=== PATIENT | female | born 1935 | race Caucasian/White ===

== ENCOUNTER 2017-02-07 12:53 | Inpatient (IN) | payer OTHER ==
[~2017-02-07] VITALS: Ht 154.9 cm; Wt 57.7 kg
[2017-02-07 12:54] VITALS: Ht 154.9 cm; Wt 57.7 kg
[2017-02-07 13:41] LABS: BASOPHIL % 0.1 % (0-2); PLATELET COUNT 282 x10^3mcL (130-400); RED CELL DISTRIBUTION WIDTH 13.5 % (11.5-14.5)
[2017-02-07 14:06] LABS: ALBUMIN 3.6 g/dL (3.4-5.0); ALKALINE PHOSPHATASE 86 U/L (46-116); ALT/SGPT 49 U/L (14-59); AST/SGOT 43 U/L (15-37); CALCIUM 8.4 mg/dL (8.5-10.1); CARBON DIOXIDE 24.9 mmol/L (21-32); CHLORIDE SERUM 80 mmol/L (98-107); CHOLESTEROL 157 mg/dL (<200); CREATININE SERUM 0.5 mg/dL (0.6-1.0); GLUCOSE SERUM 107 mg/dL (74-106); POTASSIUM SERUM 3.4 mmol/L (3.5-5.1); TOTAL PROTEIN, SERUM 7.1 g/dL (6.4-8.2)
[2017-02-07 14:12] LABS: SODIUM SERUM 116 mmol/L (136-145)
[2017-02-07] MEDS ORDERED: ASPIR 8181 MG PO (15:22)
[2017-02-07] MEDS ORDERED: METOPROLOL SUCC50 M2 PO (15:22)
[2017-02-07 15:40] LABS: MAGNESIUM 1.7 mg/dL (1.8-2.4); PHOSPHOROUS 2.5 mg/dL (2.5-4.9)
[2017-02-07 15:42] LABS: CHOLESTEROL/HDL RATIO 1.5
[2017-02-07 15:49] LABS: FREE T4 1.47 ng/dL (0.76-1.46); FREE THYROXINE INDEX 3.9 ug/dL (1.4-4.5); T4(THYROXINE) 10.6 ug/dL (4.7-13.3)
[2017-02-07 15:58] LABS: T3 TOTAL 0.63 ng/mL
[2017-02-07 16:05] VITALS: BP 160/56
[2017-02-07 17:16] VITALS: BP 150/71
[2017-02-07 17:26] LABS: CALCIUM 8.4 mg/dL (8.5-10.1); CHLORIDE SERUM 81 mmol/L (98-107); CREATININE SERUM 0.5 mg/dL (0.6-1.0); GLUCOSE SERUM 99 mg/dL (74-106); POTASSIUM SERUM 3.4 mmol/L (3.5-5.1)
[2017-02-07 17:29] LABS: SODIUM SERUM 115 mmol/L (136-145)
[2017-02-07 19:59] VITALS: BP 192/80
[2017-02-07] MEDS ORDERED: CLONIDINE HCL0.1 MG PO (20:25)
[2017-02-07 21:25] VITALS: BP 161/71
[2017-02-07 23:29] LABS: CALCIUM 7.9 mg/dL (8.5-10.1); CARBON DIOXIDE 25.8 mmol/L (21-32); CREATININE SERUM 0.6 mg/dL (0.6-1.0); GLUCOSE SERUM 98 mg/dL (74-106); POTASSIUM SERUM 3.5 mmol/L (3.5-5.1)
[2017-02-07 23:36] LABS: CHLORIDE SERUM 83 mmol/L (98-107)
[2017-02-07 23:37] LABS: SODIUM SERUM 116 mmol/L (136-145)
[2017-02-08] VITALS (7 sets, daily range): BP systolic 139–182; BP diastolic 65–74
[2017-02-08 06:07] LABS: UA SPECIFIC GRAVITY 1.015 (1.005-1.035); microscopic required? YES; urine erythrocyte NEGATIVE (NEGATIVE)
[2017-02-08 06:16] LABS: AMPHETAMINE QUAL UR NONE DETECTED (NEG <=1000)
[2017-02-08 06:52] LABS: BASOPHIL % 0.2 % (0-2); PLATELET COUNT 264 x10^3mcL (130-400); RED CELL DISTRIBUTION WIDTH 13.8 % (11.5-14.5)
[2017-02-08 07:14] LABS: CALCIUM 8.5 mg/dL (8.5-10.1); CARBON DIOXIDE 26.8 mmol/L (21-32); CHLORIDE SERUM 85 mmol/L (98-107); CREATININE SERUM 0.6 mg/dL (0.6-1.0); GLUCOSE SERUM 95 mg/dL (74-106)
[2017-02-08 07:38] LABS: SODIUM SERUM 121 mmol/L (136-145)
[2017-02-08 13:29] LABS: CALCIUM 8.5 mg/dL (8.5-10.1); CARBON DIOXIDE 27.5 mmol/L (21-32); CHLORIDE SERUM 90 mmol/L (98-107); CREATININE SERUM 0.6 mg/dL (0.6-1.0); GLUCOSE SERUM 91 mg/dL (74-106); SODIUM SERUM 128 mmol/L (136-145)
[2017-02-08 16:57] LABS: CALCIUM 8.3 mg/dL (8.5-10.1); CARBON DIOXIDE 28.1 mmol/L (21-32); CHLORIDE SERUM 87 mmol/L (98-107); CREATININE SERUM 0.8 mg/dL (0.6-1.0); GLUCOSE SERUM 96 mg/dL (74-106); POTASSIUM SERUM 3.6 mmol/L (3.5-5.1)
[2017-02-08 16:59] LABS: SODIUM SERUM 123 mmol/L (136-145)
[2017-02-08 20:37] LABS: CALCIUM 8.1 mg/dL (8.5-10.1); CARBON DIOXIDE 29.6 mmol/L (21-32); CHLORIDE SERUM 90 mmol/L (98-107); CREATININE SERUM 0.7 mg/dL (0.6-1.0); GLUCOSE SERUM 107 mg/dL (74-106); POTASSIUM SERUM 3.4 mmol/L (3.5-5.1); SODIUM SERUM 126 mmol/L (136-145)
[2017-02-09 00:39] LABS: CALCIUM 7.9 mg/dL (8.5-10.1); CARBON DIOXIDE 28.9 mmol/L (21-32); CHLORIDE SERUM 92 mmol/L (98-107); CREATININE SERUM 0.7 mg/dL (0.6-1.0); GLUCOSE SERUM 94 mg/dL (74-106); POTASSIUM SERUM 3.5 mmol/L (3.5-5.1); SODIUM SERUM 127 mmol/L (136-145)
[2017-02-09 05:07] VITALS: BP 143/59
[2017-02-09 06:46] LABS: BASOPHIL % 0.3 % (0-2); PLATELET COUNT 252 x10^3mcL (130-400); RED CELL DISTRIBUTION WIDTH 14.2 % (11.5-14.5)
[2017-02-09 07:03] LABS: CALCIUM 8.3 mg/dL (8.5-10.1); CARBON DIOXIDE 28.3 mmol/L (21-32); CHLORIDE SERUM 93 mmol/L (98-107); CREATININE SERUM 0.8 mg/dL (0.6-1.0); GLUCOSE SERUM 89 mg/dL (74-106); POTASSIUM SERUM 4.1 mmol/L (3.5-5.1); SODIUM SERUM 127 mmol/L (136-145)
[2017-02-09 08:30] VITALS: BP 127/57
[2017-02-09 13:40] VITALS: BP 106/52
[2017-02-09 18:01] VITALS: BP 157/60
[2017-02-09 20:56] VITALS: BP 147/63
[2017-02-10 04:57] VITALS: BP 177/62
[2017-02-10 05:31] VITALS: BP 166/59
[2017-02-10 07:42] LABS: CALCIUM 8.7 mg/dL (8.5-10.1); CARBON DIOXIDE 28.8 mmol/L (21-32); CHLORIDE SERUM 91 mmol/L (98-107); CREATININE SERUM 0.8 mg/dL (0.6-1.0); GLUCOSE SERUM 92 mg/dL (74-106); POTASSIUM SERUM 3.4 mmol/L (3.5-5.1); SODIUM SERUM 129 mmol/L (136-145)
[2017-02-10 08:14] LABS: BASOPHIL % 0.1 % (0-2); PLATELET COUNT 283 x10^3mcL (130-400); RED CELL DISTRIBUTION WIDTH 14.4 % (11.5-14.5)
[2017-02-10 10:01] VITALS: BP 148/79
[2017-02-10] MEDS ORDERED: CLONIDINE HCL0.1 MG PO (10:49)
[2017-02-10] MEDS ORDERED: SOD1 PO (10:50)
[2017-02-10 12:16] VITALS: BP 148/79
[2017-02-10] MEDS ORDERED: VENTOLIN H0.09 MG/A1 INH (14:04)
== END 2017-02-10 16:40 | disposition home or self-care (01) | DRG 177 ==
LOC: ED 12:53 → DU 15:07 → MU 02-10 06:03
PROVIDERS: Emergency Medicine; Family Medicine; Family Medicine Sports Medicine
DX: J69.0 Pneumonitis due to inhalation of food and vomit (principal); G93.41 Metabolic encephalopathy; N17.0 Acute kidney failure with tubular necrosis; E22.2 Syndrome of inappropriate secretion of antidiuretic hormone; J44.1 Chronic obstructive pulmonary disease with (acute) exacerbation; I71.2 Thoracic aortic aneurysm, without rupture; K57.90 Diverticulosis of intestine, part unspecified, without perforation or abscess without bleeding; E87.6 Hypokalemia; E83.42 Hypomagnesemia; R73.03 Prediabetes; R59.0 Localized enlarged lymph nodes; I10 Essential (primary) hypertension; Z79.82 Long term (current) use of aspirin; Z87.891 Personal history of nicotine dependence; Z68.21 Body mass index [BMI] 21.0-21.9, adult
CPT/HCPCS: 83880; 84439; 90658; J1940; J3475; J3480; J3490; J7030; Q0092; Q9967

== ENCOUNTER 2017-03-06 13:46 | Emergency (ER) | payer OTHER ==
[~2017-03-06] VITALS: Ht 152.4 cm; Wt 52.6 kg
[~2017-03-06 13:46] MED LIST: ASPIR 8181 MG PO; CLONIDINE HCL0.1 MG PO; METOPROLOL SUCC50 M2 PO; SOD1 PO; VENTOLIN H0.09 MG/A1 INH
[2017-03-06 13:58] VITALS: Ht 152.4 cm; Wt 52.6 kg
[2017-03-06 15:07] LABS: BASOPHIL % 0.6 % (0-2); PLATELET COUNT 294 x10^3mcL (130-400); RED CELL DISTRIBUTION WIDTH 14.8 % (11.5-14.5)
[2017-03-06 15:22] LABS: CALCIUM 9.4 mg/dL (8.5-10.1); CARBON DIOXIDE 28.7 mmol/L (21-32); CHLORIDE SERUM 95 mmol/L (98-107); CREATININE SERUM 0.6 mg/dL (0.6-1.0); GLUCOSE SERUM 107 mg/dL (74-106); POTASSIUM SERUM 3.9 mmol/L (3.5-5.1); SODIUM SERUM 132 mmol/L (136-145)
[2017-03-06 15:27] LABS: ALBUMIN 4.1 g/dL (3.4-5.0); ALKALINE PHOSPHATASE 102 U/L (46-116); ALT/SGPT 65 U/L (14-59); AST/SGOT 43 U/L (15-37); BILIRUBIN TOTAL 0.93 mg/dL (0.20-1.00); TOTAL PROTEIN, SERUM 7.6 g/dL (6.4-8.2)
[2017-03-06 16:36] VITALS: BP 190/80
== END 2017-03-06 16:36 | disposition home or self-care (01) ==
LOC: ED 13:46
PROVIDERS: Emergency Medicine
DX: I10 Essential (primary) hypertension (principal); E87.1 Hypo-osmolality and hyponatremia
CPT/HCPCS: 36415